=== PATIENT | male | born 1980 | race Caucasian/White ===

== ENCOUNTER 2021-02-16 16:44 | Emergency (ER) | payer MEDICARE ==
[2021-02-16] MEDS ORDERED: IBUPROFEN 600 MG TABLET ONE (17:43)
[2021-02-16] MEDS ORDERED: ACETAMINOPHEN-CODEINE 300/30MG TAB ONE (17:44)
[2021-02-16] MEDS ORDERED: AMOXICILLIN 500 MG CAPSULE PO ONE (17:44)
== END 2021-02-16 17:51 | disposition home or self-care (01) ==
LOC: EDH 16:44
DX: K04.7 Periapical abscess without sinus (principal); Z72.0 Tobacco use; Z98.890 Other specified postprocedural states